=== PATIENT | female | born 1950 | race Caucasian/White ===

== ENCOUNTER 2019-07-24 07:35 | Observation (INO) | payer MEDICARE ==
[2019-07-21 10:22] LABS: INTERNATIONAL NORMALIZED RATIO 0.96 (0.93-1.1); PROTHROMBIN TIME 10.2 Seconds (9.6-11.5)
[~2019-07-24] VITALS: Ht 165.1 cm; Wt 63.0 kg
[~2019-07-24 07:35] MED LIST: CA C1TAB34 PO; CHOL10003 PO; GLUC1TAB27 PO; IBUP-1623 PO; MULT-672 PO; MULT-717 PO; TRANEXAMIC ACID 100 MG/ML, 10ML ONE; VALA500T8 PO; ZOLP5TAB6 PO
[2019-07-24] MEDS ORDERED: LACTATED RINGERS 1,000 ML IV SCH (07:53)
[2019-07-24 07:55] VITALS: BP 135/82
[2019-07-24] MEDS ORDERED: ACETAMINOPHEN 500 MG TABLET PO ONE (08:00)
[2019-07-24] MEDS ORDERED: GABAPENTIN 300 MG CAPSULE PO ONE (08:00)
[2019-07-24] MEDS ORDERED: CHLORHEXIDINE 15 ML UDC MM ONE (08:00)
[2019-07-24] MEDS ORDERED: FENTANYL PF 250 MCG/5ML ONE (08:05)
[2019-07-24] MEDS ORDERED: ROPIvacaine/PF 0.5%, 30 ML ONE ×2 (08:05→08:06)
[2019-07-24] MEDS ORDERED: MIDAZOLAM 1 MG/ML, 2ML ONE (08:05)
[2019-07-24] MEDS ORDERED: PROPOFOL 10 MG/ML, 20ML ONE (08:05)
[2019-07-24] MEDS ORDERED: ROCURONIUM 10MG/ML,5ML ONE (08:05)
[2019-07-24] MEDS ORDERED: LIDOCAINE-MPF 2% ,5ML ONE (08:05)
[2019-07-24] MEDS ORDERED: ONDANSETRON 2MG/ML, 2ML ONE (08:05)
[2019-07-24] MEDS ORDERED: CEFAZOLIN 1,000 MG ONE ×2 (08:05)
[2019-07-24] MEDS ORDERED: DEXAMETHASONE 4 MG/ML, 1ML ONE ×2 (08:05)
[2019-07-24] MEDS ORDERED: ROPIvacaine/PF 0.2%, 20 ML ONE (08:14)
[2019-07-24] MEDS ORDERED: EPINEPHRINE 1 MG/ML, 1ML ONE (08:14)
[2019-07-24] MEDS ORDERED: KETOROLAC 60 MG/2 ML ONE (08:14)
[2019-07-24] MEDS ORDERED: SODIUM CHLORIDE 0.9% 0 ML ONE (08:14)
[2019-07-24] MEDS ORDERED: NEOSTIGMINE 1 MG/ML, 10ML ONE (10:13)
[2019-07-24] MEDS ORDERED: GLYCOPYRROLATE 0.2MG/1ML, 5ML ONE (10:13)
[2019-07-24] MEDS ORDERED: ONDANSETRON 4 MG TABLET PO PRN (10:30)
[2019-07-24] MEDS ORDERED: MEPERIDINE/PF 25MG/0.5ML IVPush PRN (10:30)
[2019-07-24] MEDS ORDERED: SENNA/DOCUSATE TABLET PO PRN (10:30)
[2019-07-24] MEDS ORDERED: ONDANSETRON 2MG/ML, 2ML IVPush PRN (10:30)
[2019-07-24] MEDS ORDERED: DIPHENHYDRAMINE 50 MG CAPSULE PO PRN (10:30)
[2019-07-24] MEDS ORDERED: OXYcodone IR 5MG TABLET PO PRN (10:30)
[2019-07-24] MEDS ORDERED: TRANEXAMIC ACID 1,000 MG in SODIUM CHLORIDE 0.9% 100 ML IVPB ONE (10:30)
[2019-07-24] MEDS: ACETAMINOPHEN 500 MG TABLET PO SCH ×2 (10:30→19:12)
[2019-07-24] MEDS ORDERED: LORazepam 2 MG/ML, 1ML IVPush PRN (10:30)
[2019-07-24] MEDS ORDERED: FENTANYL PF 100 MCG/2ML ONE (11:58)
[2019-07-24] MEDS ORDERED: OXYcodone 5 MG/5 ML ORAL.SOL UDC ONE ×2 (11:58→12:58)
[2019-07-24] MEDS: FENTANYL PF 100 MCG/2ML IV PRN ×4 (12:00→12:23)
[2019-07-24] MEDS: OXYcodone 5 MG/5 ML ORAL.SOL UDC PO PRN ×2 (12:16→12:59)
[2019-07-24] MEDS ORDERED: HYDROmorphone 1 MG/ML, 1ML INJ ONE (12:29)
[2019-07-24] MEDS: HYDROmorphone 1 MG/ML, 1ML INJ IVPush PRN ×3 (12:31→12:53)
[2019-07-24] MEDS ORDERED: LORazepam 2 MG/ML, 1ML ONE (12:48)
[2019-07-24] MEDS ORDERED: DIAZEPAM 5 MG/ML, 2ML ONE (13:04)
[2019-07-24] MEDS ORDERED: MEPERIDINE/PF 50 MG/ML ONE (13:25)
[2019-07-24] MEDS ORDERED: DIAZEPAM 5 MG/ML, 2ML IV PRN (13:30)
[2019-07-24] MEDS ORDERED: DEXAMETHASONE 4 MG/ML, 1ML IVPush ONE (14:24)
[2019-07-24] MEDS: PREGABALIN 75 MG CAPSULE PO SCH ×2 (14:27→20:30)
[2019-07-24] MEDS ORDERED: ASPI81TA45 PO (14:54)
[2019-07-24] MEDS: LACTATED RINGERS 1,000 ML IV SCH ×2 (16:24→23:26)
[2019-07-24] MEDS ORDERED: OXYC5TAB3 PO (17:20)
[2019-07-24] MEDS: CEFAZOLIN PMX 1GM/50ML 50 ML IVPB SCH (19:10)
[2019-07-24 19:22] VITALS: BP 115/76
[2019-07-24 19:27] VITALS: BP 112/67
[2019-07-24] MEDS: ASPIRIN 81 MG TABLET EC PO SCH (20:29)
[2019-07-24] MEDS: OXYcodone IR 5MG TABLET PO PRN (20:30)
[2019-07-25] MEDS: OXYcodone IR 5MG TABLET PO PRN ×4 (00:34→14:07)
[2019-07-25 00:53] VITALS: BP 115/70
[2019-07-25] MEDS: ACETAMINOPHEN 500 MG TABLET PO SCH ×3 (01:00→14:07)
[2019-07-25] MEDS: CEFAZOLIN PMX 1GM/50ML 50 ML IVPB SCH (02:58)
[2019-07-25 04:08] VITALS: BP 104/48
[2019-07-25] MEDS ORDERED: DEXAMETHASONE 4 MG/ML, 1ML IVPush ONE ×2 (06:00)
[2019-07-25 07:22] VITALS: BP 112/66
[2019-07-25] MEDS: ASPIRIN 81 MG TABLET EC PO SCH (09:28)
[2019-07-25] MEDS: PREGABALIN 75 MG CAPSULE PO SCH (09:29)
[2019-07-25] MEDS: LACTATED RINGERS 1,000 ML IV SCH (12:46)
[2019-07-25 12:55] VITALS: BP 99/60
== END 2019-07-25 15:20 | disposition home or self-care (01) ==
LOC: OUT 07:35 → ORIP 10:26 → 4NE 14:19
PROVIDERS: ADMIT Orthopaedic Surgery; ATTEND Orthopaedic Surgery
DX: Z03.818 Encounter for observation for suspected exposure to other biological agents ruled out (principal); M17.11 Unilateral primary osteoarthritis, right knee; Z79.899 Other long term (current) drug therapy; Z79.82 Long term (current) use of aspirin; Z68.21 Body mass index [BMI] 21.0-21.9, adult
CPT/HCPCS: 27447; 36415; 73560; 85018; 85610; 85730; 96365; 96366; 96375; 97162; C1713; C1776; G0378; J0690; J1100; J1170; J2060; J2175; J2250; J2405; J2704; J2710; J2795; J3010; J3360; J3490; J7120; U0001; J0171; J1885